=== PATIENT | male | born 1965 | race Caucasian/White ===

== ENCOUNTER 2018-03-23 09:04 | Emergency (ER) | payer BC ==
--- NOTE | 2018-03-23 09:50 | ED ---
Lower Extremity - HPI Summary HPI Summary: 52 year male presents with right great toe injury yesterday. He states he injured his great toe by kicking the dog. He denies any numbness or tingling. No other injury. No ankle pain. No previous fracture to the area. Hasn't taking anything for pain. Has noticed increased bruising to his right great toe. Still able to ambulate with pain. No medical conditions. He is not on blood thinners. - History of Current Complaint Chief Complaint: EDExtremityLower Stated Complaint: RT TOE INJURY Time Seen by Provider: 03/23/18 09:16 Pain Intensity: 4 - Allergies/Home Medications Allergies/Adverse Reactions: Allergies Allergy/AdvReac Type Severity Reaction Status Date / Time No Known Allergies Allergy Verified 03/17/17 10:01 PMH/Surg Hx/FS Hx/Imm Hx Endocrine/Hematology History: Denies: Hx Diabetes Cardiovascular History: Denies: Hx Hypertension, Hx Pacemaker/ICD Respiratory History: Reports: Hx Asthma History: Denies: Hx Renal Disease Sensory History: Denies: Hx Hearing Aid Psychiatric History: Denies: Hx Panic Disorder - Surgical History Surgery Procedure, Year, and Place: TONSILS AGE 14. BOTOX SHOT IN ESOPHAGUS AGE 28 Infectious Disease History: No Infectious Disease History: Denies: Traveled Outside the [place] in Last 30 Days - Family History Known Family History: Positive: Hypertension - Social History Alcohol Use: Occasionally Substance Use Type: Reports: None Smoking Status (MU): Light Every Day Tobacco Smoker Review of Systems Negative: Fever Negative: Chest Pain Negative: Shortness Of Breath Positive: Myalgia - right great toe All Other Systems Reviewed And Are Negative: Yes Physical Exam Triage Information Reviewed: Yes Vital Signs On Initial Exam: Initial Vitals Temp Pulse Resp BP Pulse Ox 98 F 57 16 130/72 98 03/23/18 09:11 03/23/18 09:11 03/23/18 09:11 03/23/18 09:11 03/23/18 09:11 Vital Signs Reviewed: Yes Appearance: Positive: Well-Appearing Skin: Positive: Warm, Dry Head/Face: Positive: Normal Head/Face Inspection Eyes: Positive: Normal, Conjunctiva Clear ENT: Positive: Pharynx normal Respiratory/Lung Sounds: Positive: Clear to Auscultation, Breath Sounds Present Cardiovascular: Positive: Normal, RRR Musculoskeletal: Positive: Limited @ - right great toe, Edema Right - great toe , Other - ecchymosis to great toe right, capillary refill<2 secs, sensation grossly intact Neurological: Positive: Normal Psychiatric: Positive: Normal Diagnostics - Vital Signs Vital Signs Temp Pulse Resp BP Pulse Ox 03/23/18 09:11 98 F 57 16 130/72 98 - Laboratory Lab Statement: Any lab studies that have been ordered have been reviewed, and results considered in the medical decision making process. - Radiology foot Xray Interpretation: Positive (See Comments) - IMPRESSION: NONDISPLACED FRACTURE OF THE BASE OF THE DISTAL PHALANX OF THE FIRST DIGIT Radiology Interpretation Completed By: Radiologist Lower Extremity Course/Dx - Course Course Of Treatment: 52 year male presents with right great toe injury yesterday. He states he injured his great toe by kicking the dog. He denies any numbness or tingling. No other injury. No ankle pain. No previous fracture to the area. Hasn't taking anything for pain. Has noticed increased bruising to his right great toe. Still able to ambulate with pain. No medical conditions. On exam has ecchymosis noted to right great toe. Limited range of motion of the toe. Neurovascular intact. X-ray shows distal phalanx fracture. ranjith taped and place in post up shoe. will have follow up with ortho. patient understand and agrees with plan. - Diagnoses Differential Diagnosis/HQI/PQRI: Positive: Fracture (Closed), Sprain, Strain Provider Diagnoses: Fracture of distal phalanx of right great toe Discharge - Sign-Out/Discharge Documenting (check all that apply): Patient Departure - Discharge Plan Condition: Good Disposition: HOME Patient Education Materials: Toe Fracture (ED) Forms: *Work Release Referrals: Luis Muhammad MD [Primary Care Provider] - Tiffany Cardoza MD [Medical Doctor] - Additional Instructions: ranjith tape toes, use post op shoe or hard sole shoe Take Tylenol every 6 hours as needed for pain Apply ice, rest, elevate Follow up with ortho or primary Return to ED if develop any new or worsening symptoms - Billing Disposition and Condition Condition: GOOD Disposition: Home
--- NOTE | 2018-03-23 10:07 | RAD ---
HISTORY: right great toe injury COMPARISONS: None VIEWS: 7, Frontal, lateral, and oblique views of the first digit of the right foot FINDINGS: BONE DENSITY: Normal. BONES: There is a comminuted nondisplaced fracture through the base of the distal phalanx of the first digit along the dorsolateral aspect. JOINTS: There is no arthropathy. ALIGNMENT: There is no dislocation. SOFT TISSUES: Unremarkable. OTHER FINDINGS: None. IMPRESSION: NONDISPLACED FRACTURE OF THE BASE OF THE DISTAL PHALANX OF THE FIRST DIGIT
[2018-03-23 10:37] VITALS: BP 127/73
== END 2018-03-23 10:30 | disposition home or self-care (01) ==
LOC: ED 09:04
DX: S92.424A Nondisplaced fracture of distal phalanx of right great toe, initial encounter for closed fracture (principal); W54.1XXA Struck by dog, initial encounter; Y92.9 Unspecified place or not applicable; F17.200 Nicotine dependence, unspecified, uncomplicated
CPT/HCPCS: 99282

== ENCOUNTER 2018-08-12 09:00 | Emergency (ER) | payer BC, OTHER ==
--- NOTE | 2018-08-12 09:36 | ED ---
Skin Complaint - HPI Summary HPI Summary: Patient here with head injury prior to arrival. Reports he was at work pulling something into the bed of a truck when he accidentally hit the head top of his head on a garage door. He has an abrasion there with bleeding now. Denies loss of consciousness, headache, visual change, nausea, vomiting, neck pain. He is mostly concerned about the wound. He is unsure of his last tetanus but believes it was 4 years ago. Bleeding is controlled with pressure since he's been here. Has mild burning discomfort over the wound but otherwise feels fine. Denies anticoagulation therapy. - History of Current Complaint Chief Complaint: EDHeadInjury Time Seen by Provider: 08/12/18 09:09 Stated Complaint: HEAD INJURY Hx Obtained From: Patient Pain Intensity: 2 - Allergy/Home Medications Allergies/Adverse Reactions: Allergies Allergy/AdvReac Type Severity Reaction Status Date / Time No Known Allergies Allergy Verified 03/17/17 10:01 Home Medications: Home Medications Diazepam TAB(*) [Valium TAB(*)] 5 mg PO BEDTIME 08/12/18 [History Confirmed ] Ibuprofen TAB* [Motrin TAB* 800 MG] 800 mg PO BID 08/12/18 [History Confirmed ] PMH/Surg Hx/FS Hx/Imm Hx Previously Healthy: Yes Endocrine/Hematology History: Denies: Hx Anticoagulant Therapy, Hx Diabetes, Autoimmune Disease Cardiovascular History: Denies: Hx Hypertension, Hx Pacemaker/ICD Respiratory History: Reports: Hx Asthma History: Denies: Hx Renal Disease Sensory History: Denies: Hx Hearing Aid Psychiatric History: Denies: Hx Panic Disorder - Surgical History Surgery Procedure, Year, and Place: TONSILS AGE 14. BOTOX SHOT IN ESOPHAGUS AGE 28 - Immunization History Immunizations Up to Date: Unable to Obtain/Confirm Infectious Disease History: No Infectious Disease History: Denies: Traveled Outside the [place] in Last 30 Days - Family History Known Family History: Positive: Hypertension - Social History Occupation: Employed Full-time - [employer] Alcohol Use: Occasionally Hx Substance Use: No Substance Use Type: Reports: None Hx Tobacco Use: Yes Smoking Status (MU): Current Every Day Smoker Review of Systems Constitutional: Negative Negative: Fatigue Eyes: Negative Negative: Photophobia, Blurred Vision, Diplopia ENT: Negative Negative: Epistaxis, Dental Pain Respiratory: Negative Gastrointestinal: Negative Negative: Vomiting, Nausea Positive: no symptoms reported Musculoskeletal: Negative Skin: Other - abrasion scalp Neurological: Negative Psychological: Normal All Other Systems Reviewed And Are Negative: Yes Physical Exam Triage Information Reviewed: Yes Vital Signs On Initial Exam: Initial Vitals Temp Pulse Resp BP Pulse Ox 97.3 F 56 16 145/98 98 08/12/18 09:07 08/12/18 09:07 08/12/18 09:07 08/12/18 09:07 08/12/18 09:07 Vital Signs Reviewed: Yes Appearance: Positive: Well-Appearing, No Pain Distress, Well-Nourished Skin: Positive: Warm, Skin Color Reflects Adequate Perfusion - LINEAR ABRASION OVER SUPERIOR SCALP - NO ACTIVE BLEEDING - CLEAN Head/Face: Positive: Normal Head/Face Inspection Eyes: Positive: Normal, EOMI, GINGER - NO PHOTOPHOBIA, Conjunctiva Clear ENT: Positive: Normal ENT inspection, Hearing grossly normal, Pharynx normal Dental: Negative: Dental Fracture @ Neck: Positive: Supple, Nontender Respiratory/Lung Sounds: Positive: Breath Sounds Present Cardiovascular: Positive: Normal Musculoskeletal: Positive: Normal, Strength/ROM Intact Neurological: Positive: Normal, Sensory/Motor Intact, Alert, Oriented to Person Place, Time, CN Intact II-III Psychiatric: Positive: Normal Procedures - Laceration/Wound Repair 1 Location: head Description: Linear Length, Depth and Shape: 2CM X 2MM Betadine Prep?: No - ANTISEPTIC SPRAY Laceration/Wound Explored: clean Closure: Skin Adhesive Layer Closure?: No Sterile Dressing Applied?: Yes - DERMABOND Diagnostics - Vital Signs Vital Signs Temp Pulse Resp BP Pulse Ox 08/12/18 09:07 97.3 F 56 16 145/98 98 - Laboratory Lab Statement: Any lab studies that have been ordered have been reviewed, and results considered in the medical decision making process. Course/Dx - Course Course Of Treatment: No s/sx of concussion. Pt called PCP and they could not verify tetanus anytime after 2011 - will provide boostrix today - Diagnoses Provider Diagnoses: Scalp abrasion Discharge - Sign-Out/Discharge Documenting (check all that apply): Patient Departure - Discharge Plan Condition: Stable Disposition: HOME Patient Education Materials: Skin Adhesive Care (ED) Referrals: Luis Muhammad MD [Primary Care Provider] - Additional Instructions: You may apply ice for pain/swelling and take ibuprofen alternating with acetaminophen as needed for pain Monitor for signs or symptoms of infection - IF THESE DEVELOP OR YOU DEVELOP HEADACHE, CHANGE IN VISION, VOMITING, WEAKNESS, DIZZINESS, SEEK MEDICAL ATTENTION - Billing Disposition and Condition Condition: STABLE Disposition: Home
[2018-08-12] MEDS ORDERED: Tetan/Diph/Pertus SYR(Tdap)* 0.5 ML SYR(BOOSTRIX) use SYR IM ONE (09:43)
[2018-08-12 09:56] VITALS: BP 127/81
== END 2018-08-12 09:52 | disposition home or self-care (01) ==
LOC: ED 09:00
DX: S00.01XA Abrasion of scalp, initial encounter (principal); W22.8XXA Striking against or struck by other objects, initial encounter; Y93.89 Activity, other specified; Y92.89 Other specified places as the place of occurrence of the external cause; Y99.0 Civilian activity done for income or pay; Z23 Encounter for immunization; R86.9 Unspecified abnormal finding in specimens from male genital organs; F17.200 Nicotine dependence, unspecified, uncomplicated
CPT/HCPCS: 12001; 90471; 90715; 99282

== ENCOUNTER 2019-06-10 10:52 | Emergency (ER) | payer BC ==
[2019-06-10 11:00] VITALS: BP 122/74
--- NOTE | 2019-06-10 12:02 | UC ---
Throat Pain/Nasal Caesar HPI - HPI Summary HPI Summary: 53 you with sinus discomfort. Also, sore throat. Began two days ago. "Achey" otherwise no complaints. No fever. Able to handle food and fluids. - History of Current Complaint Chief Complaint: UCRespiratory Stated Complaint: SINUS ISSUE SORE THROAT Time Seen by Provider: 06/10/19 11:59 Hx Obtained From: Patient Pain Intensity: 5 - Allergies/Home Medications Allergies/Adverse Reactions: Allergies Allergy/AdvReac Type Severity Reaction Status Date / Time shellfish derived Allergy Intermediate DIARRHEA Verified 06/10/19 11:01 AND HEADACHES PMH/Surg Hx/FS Hx/Imm Hx - Additional Past Medical History Additional PMH: PAST MEDICAL HISTORY- CHRONIC and RECURRENT HEALTH PROBLEM LIST REVIEWED. Information relevant to present complaint: . Visit for migraines; tonsils removed. MEDICATIONS & ALLERGIES REVIEWED. HYPERTENSION STATUS:no antihypertensive medication FAMILY HISTORY: Positive for: hypertension SOCIAL HISTORY: non-smoker, and works as a tire mechanic Previously Healthy: Yes Other History Of: Negative For: Anticoagulant Therapy - Surgical History Surgical History: Yes Surgery Procedure, Year, and Place: TONSILS AGE 14. BOTOX SHOT IN ESOPHAGUS AGE 28 - Family History Known Family History: Positive: Hypertension - Social History Alcohol Use: Occasionally Substance Use Type: None Smoking Status (MU): Never Smoked Tobacco Household Exposure Type: Cigarettes Review of Systems All Other Systems Reviewed And Are Negative: Yes Constitutional: Positive: Negative Eyes: Positive: Negative ENT: Positive: Sore Throat - moderate, Sinus Congestion, Sinus Pain/Tenderness Respiratory: Positive: Negative Cardiovascular: Positive: Negative Gastrointestinal: Positive: Negative Genitourinary: Positive: Negative Is Patient Immunocompromised?: No Physical Exam - Summary Physical Exam Summary: Appearance: The patient is well-appearing, is in no pain or distress, and is well-nourished. Eyes: Conjunctiva are clear. Pupils are equal and reactive to light and accommodation. Extra ocular muscle movement is intact. ENT: TMs are normal. There is no muffled or hoarse voice. No stridor.. Throat is erythematous, right worse than left. There is mild discomfort in the area of the anterior cervical lymph nodes. Posterior cervical nodes are normal. The throat is open. There is no exudate. There is tenderness over the maxillary sinus on the left. Neck: The neck is supple and there is no lymphadenopathy. Respiratory: The chest is non-tender to palpation and without crepitus. The lungs are clear, there are normal breath sounds, and there is no respiratory distress. No wheezes, rales or rhonchi. Cardiovascular: Heart sounds reveal a regular rate and rhythm. There are no clicks, rubs or murmurs. There are no carotid bruits or thrills. Circulation is grossly intact. Abdomen: The abdomen is soft and nontender. There is no organomegaly. Bowel sounds are present and within normal limits. No point tenderness at McBurneys point. No CVA tenderness. Musculoskeletal: Strength is intact. The patient moves all extremities. Neurological: The patient is alert. Motor and sensory are examination grossly intact. Speech is normal. Psychological: The patient displays age appropriate behavior, and is conversant. GCS=15. Skin: Negative for rashes. Triage Information Reviewed: Yes Vital Signs: Initial Vital Signs Temp 98.4 F 06/10/19 10:57 Pulse 74 06/10/19 10:57 Resp 15 06/10/19 10:57 BP 122/74 06/10/19 10:57 Pulse Ox 98 06/10/19 10:57 Throat Pain/Nasal Course/Dx - Course Course Of Treatment: 53 you with sinus discomfort. Also, sore throat. Began two days ago. "Achey" otherwise no complaints. No fever. Able to handle food and fluids. Physical examination shows a erythematous throat and tender maxillary sinus on the left. Rapid strep is positive. I diagnosis is strep pharyngitis.I will treat the patient with amoxicillin twice a day for 10 days. - Differential Dx/Diagnosis Differential Diagnosis/HQI/PQRI: Mononucleosis, Otitis Media, Pharyngitis, Sinusitis, Tonsillitis Provider Diagnosis: Strep throat Discharge ED - Sign-Out/Discharge Documenting (check all that apply): Patient Departure All imaging exams completed and their final reports reviewed: No Studies - Discharge Plan Condition: Stable Disposition: HOME Prescriptions: Amoxicillin PO (*) [Amoxicillin 875 MG (*)] 875 mg PO BID #20 tab MDD 2 Patient Education Materials: Strep Throat (DC) Referrals: Luis Muhammad MD [Primary Care Provider] - Additional Instructions: WE DISCUSSED: PLEASE SEEK CARE AT THE EMERGENCY DEPARTMENT IF SYMPTOMS WORSEN OR IF NEW SYMPTOMS DEVELOP. FOLLOW UP WITH YOUR PRIMARY CARE PHYSICIAN IF CONDITION CONTINUES BEYOND 3 DAYS WITHOUT IMPROVEMENT. YOUR DIAGNOSIS IS: STREP THROAT treatment: Amoxicillin, twice a day for 10 days. see instructions below. WHAT ELSE CAN HELP RELIEVE YOUR SYMPTOMS: GENERAL TYPES OF MEDICINE THAT MAY HELP DECONGESTANTS: helps relieve stuffiness and clears sinuses. Pseudoephedrine ( Sudafed or generic) is effective but you need to ask the pharmacist for it because it may be kept behind the counter. ANTIHISTAMINES: are NOT helpful in many colds and flus because they can worsen sore throat, dry eyes and mouth and cause drowsiness. Examples are diphenhydramine, doxylamine and chlorpheniramine. They can help dry you out if you are having profuse, clear drainage from the nose. EXPECTORANTS: helps thin mucous in the nose and chest, making it easier to clear the fluid out. Expectorants are in most combination cough/cold remedies and should be taken with plenty of water. Guaifenesin is the most common expectorant and it comes in pill or liquid form. Mucinex is an extended release form of guaifenesin. COUGH SUPPRESANT: reduces the body's cough reflex. Dextromethorphan is in over the counter products. Rarely, narcotics such as codeine or hydrocodone are used to suppress cough. SPECIFIC MEDICATIONS: Some of these may come in combination. In general, they all contain the same or similar active ingredients. The most important goal is to liquefy all the phlegm and get it out of your head and chest: The following medicines (you can buy them without prescription) may help: To help with cough: DEXTROMETHORPHAN (Vicks, Robitussin, Nyquil and other brands) To help break up phlegm: GUAIFENESIN (Mucinex, Robitussin, other brands) To help clear congestion: PSEUDOEPHEDRINE (Sudafed, Dimetapp, other brands) TRY TO CLEAR NOSE: AFRIN NASAL SPRAY: 2-3 SPRAYS PER NOSTRIL, TWICE A DAY FOR TWO DAYS ONLY. USEFUL WAYS TO FEEL BETTER WITHOUT MEDICATIONS: STAND UNDER SHOWER STREAM TO LOOSEN SECRETIONS. USE A VAPORIZOR. STAY AWAY FROM ANY SMOKE OR IRRITANTS. USE SALINE NASAL SPRAY TO KEEP FLOW OF MUCOUS FROM NOSTRILS AND SINUSES. CONSIDER USING NETI POT TO HELP WITH ALLERGIES AND CONGESTION IN THE NOSE. USE THIS THREE TIMES A WEEK. YOU CAN GET THIS AT [facility] IN [place] OR VARIOUS DRUG[facility]ORES. DRINK LOTS OF WARM FLUIDS USEFUL HOME REMEDIES: WARM WATER GARGLES, WITH TSP OF SALT PER 8 OUNCES OF WATER, GARGLE FOR A FEW SECONDS AND SPIT OUT; GARGLE AND SPIT OUT; EVERY THREE HOURS. AND/OR: WARM WATER OR TEA, HONEY AND LEMON; 2-3 CUPS A DAY. FOR SORE THROAT: KEEP THROAT MOIST WITH LOZENGES; TEA AND HONEY. USE WARM WATER GARGLES 3-4 TIMES A DAY. FOLLOW UP: RE-CHECK IN 1O DAYS, NEEDED, IF YOU ARE NOT IMPROVING. RETURN HERE OR SEE YOUR PHYSICIAN. RE-CHECK SOONER IF INCREASED PAIN OR TEMPERATURE. - Billing Disposition and Condition Condition: STABLE Disposition: Home
== END 2019-06-10 12:38 | disposition home or self-care (01) ==
LOC: UCEAST 10:52
DX: J02.0 Streptococcal pharyngitis (principal); Z91.013 Allergy to seafood
CPT/HCPCS: 87651; 99212; G0463